=== PATIENT | male | born 1955 | race Caucasian/White ===

== ENCOUNTER 2016-10-21 09:15 | Emergency (ER) | payer OTHER ==
[~2016-10-21] VITALS: Ht 182.9 cm; Wt 104.3 kg
--- NOTE | 2016-10-21 09:40 | PHYS DOC ---
Past Medical History Past Medical History: Diabetes-Type II, Hypertension Past Surgical History: Other Additional Past Surgical Histo: nasal polyps removed Alcohol Use: None Drug Use: None Adult General Chief Complaint Chief Complaint: SORE THROAT HPI HPI Patient is a 61 year old male presents emergency Department with a complaint of atraumatic throat swelling and pressure that began 3 days ago. Patient reports that he had a "tickle sensation" in the back of his throat initially and that he's had progressive swelling to the back of his throat since that period of time. He states that he is still able to swallow but it is increasing in difficulty. States he also noticed some changes in his voice as well. Patient denies any history of chronic ear nose and throat problems with the exception of dental caries. He states that there is a tooth in the left mandible region that has a gold crown on it has been hurting for approximately a week. He denies antibiotic use within the past 90 days. Review of Systems Review of Systems Constitutional: Denies fever or chills [] Eyes: Denies change in visual acuity, redness, or eye pain [] HENT: Denies nasal congestion or sore throat [] Respiratory: Denies cough or shortness of breath [] Cardiovascular: No additional information not addressed in HPI [] GI: Denies abdominal pain, nausea, vomiting, bloody stools or diarrhea [] : Denies dysuria or hematuria [] Musculoskeletal: Denies back pain or joint pain [] Integument: Denies rash or skin lesions [] Neurologic: Denies headache, focal weakness or sensory changes [] Endocrine: Denies polyuria or polydipsia [] Current Medications Current Medications Current Medications Medications (Trade) Dose Ordered Sig/Vic Start Time Stop Time Status Last Admin Dose Admin Clindamycin Phosphate (Cleocin 600 Mg Premix) 50 ml @ 100 mls/hr 1X ONCE 10/21/16 09:45 10/21/16 10:14 DC 10/21/16 09:57 100 MLS/HR Dexamethasone Sodium Phosphate (Decadron) 20 mg 1X ONCE 10/21/16 09:45 10/21/16 09:48 DC 10/21/16 09:57 20 MG Info (Do NOT chart on this entry -- for MONITORING) 1 each PRN DAILY PRN 10/21/16 10:00 10/23/16 09:59 Iohexol (Omnipaque 300 Mg/ml) 75 ml 1X ONCE 10/21/16 10:00 10/21/16 10:01 DC 10/21/16 10:33 75 ML Sodium Chloride 500 ml @ 500 mls/hr 1X ONCE 10/21/16 09:45 10/21/16 10:44 DC 10/21/16 09:56 500 MLS/HR Allergies Allergies Allergies Coded Allergies Type Severity Reaction Last Updated Verified No Known Drug Allergies 07/07/15 No Physical Exam Physical Exam Constitutional: Well developed, well nourished, no acute distress, non-toxic appearance. [] HENT: Normocephalic, atraumatic, bilateral external ears normal, oropharynx moist, no oral exudates, nose normal. There is no trismus. There is hot potato/ muffled speech. Patient has a significant amount of left posterior oropharyngeal swelling that encroaches on the uvula. He is still able to clear his secretions and has adequate room for airway. There is no evidence of subglottic swelling. Eyes: PERRLA, EOMI, conjunctiva normal, no discharge. [] Neck: Normal range of motion, no tenderness, supple, no stridor. There is no anterior soft tissue fullness. There is left anterior cervical lymphadenopathy. Cardiovascular:Heart rate regular rhythm, no murmur [] Lungs & Thorax: Bilateral breath sounds clear to auscultation [] Abdomen: Bowel sounds normal, soft, no tenderness, no masses, no pulsatile masses. [] Skin: Warm, dry, no erythema, no rash. [] Back: No tenderness, no CVA tenderness. [] Extremities: No tenderness, no cyanosis, no clubbing, ROM intact, no edema. [] Neurologic: Alert and oriented X 3, normal motor function, normal sensory function, no focal deficits noted. [] Psychologic: Affect normal, judgement normal, mood normal. [] Current Patient Data Vital Signs Vital Signs Date Time Temp Pulse Resp B/P Pulse Ox O2 Delivery O2 Flow Rate FiO2 10/21/16 09:32 97.9 93 20 152/96 98 Room Air 97.9 Lab Values Laboratory Tests Test 10/21/16 09:41 White Blood Count 14.0x10^3/uL (4.0-11.0) H Red Blood Count 5.30x10^6/uL (4.30-5.70) Hemoglobin 15.1g/dL (13.0-17.5) Hematocrit 44.8% (39.0-53.0) Mean Corpuscular Volume 85fL (79-100) Mean Corpuscular Hemoglobin 29pg (25-35) Mean Corpuscular Hemoglobin Concent 34g/dL (31-37) Red Cell Distribution Width 14.2% (11.5-14.5) Platelet Count 198x10^3/uL (140-400) Neutrophils (%) (Auto) 78% (31-73) H Lymphocytes (%) (Auto) 12% (24-48) L Monocytes (%) (Auto) 8% (0-9) Eosinophils (%) (Auto) 2% (0-3) Basophils (%) (Auto) 0% (0-3) Neutrophils # (Auto) 10.9x10^3uL (1.8-7.7) H Lymphocytes # (Auto) 1.6x10^3/uL (1.0-4.8) Monocytes # (Auto) 1.2x10^3/uL (0.0-1.1) H Eosinophils # (Auto) 0.2x10^3/uL (0.0-0.7) Basophils # (Auto) 0.1x10^3/uL (0.0-0.2) Sodium Level 141mmol/L (136-145) Potassium Level 4.2mmol/L (3.5-5.1) Chloride Level 103mmol/L (98-107) Carbon Dioxide Level 25mmol/L (21-32) Anion Gap 13 (6-14) Blood Urea Nitrogen 15mg/dL (8-26) Creatinine 0.7mg/dL (0.7-1.3) Estimated GFR (Cockcroft-Gault) 113.9 BUN/Creatinine Ratio 21 (6-20) H Glucose Level 130mg/dL (70-99) H Calcium Level 9.1mg/dL (8.5-10.1) Total Bilirubin 0.5mg/dL (0.2-1.0) Aspartate Amino Transferase (AST) 17U/L (15-37) Alanine Aminotransferase (ALT) 21U/L (16-63) Alkaline Phosphatase 81U/L (46-116) Total Protein 8.4g/dL (6.4-8.2) H Albumin 4.0g/dL (3.4-5.0) Albumin/Globulin Ratio 0.9 (1.0-1.7) L Laboratory Tests 10/21/16 09:41 Laboratory Tests 10/21/16 09:41 EKG EKG [] Radiology/Procedures Radiology/Procedures [[facility] [address] [place] [address] IMAGING REPORT Signed PATIENT: KATYA ANAYA ACCOUNT: [id number] : 1955 LOCATION: ER AGE: 61 SEX: M EXAM STATUS: REG ER ORD. PHYSICIAN: JEFFERSON PEREZ REASON: LEFT peritonsillar swelling PROCEDURE: CT SOFT TISSUE NECK W/CONTRAST EXAM: CT neck with contrast. HISTORY: 61-year-old male with left peritonsillar swelling for 3 days. Patient with history of nasal polyps removed. Patient has type 2 diabetes. TECHNIQUE: Computed tomographic images of the neck are obtained following the intravenous demonstration of 70 cc of Omni 300. The patient's IV infiltrated during administration. Multiplanar reformatting was performed. An overlying BB marker is placed at the level of swelling. One or more of the following individualized dose reduction techniques were utilized for this examination: 1. Automated exposure control 2. Adjustment of the mA and/or kV according to patient size 3. Use of iterative reconstruction technique COMPARISON: None. FINDINGS: There is asymmetry and enlargement of the left tonsils as compared to the right. Minimal internal low-attenuation is present within the enlarged tonsil measuring up to 9 mm in greatest dimension. Asymmetry of the left-sided mucosal/pharyngeal soft tissues extends inferiorly to the level of the epiglottis. Scattered prominent cervical lymph nodes are present bilaterally, the largest measuring 1.8 cm within the left level I region. A BB marker placed over the skin at the level of concern overlies the inferior portion of the left parotid gland. The bilateral parotid and submandibular glands appear symmetric and without a focal abnormality. Bilateral carotid arteries are patent. Thyroid gland is symmetric. Fat planes of the neck are maintained. There is mucosal thickening present throughout the paranasal sinuses, without an air-fluid level present. Mastoid air cells are clear. Overlying soft tissues demonstrate no acute process. Visualized intracranial structures demonstrate no acute process or abnormal enhancing finding. Visualized upper lungs are clear. Visualized osseous structures demonstrate no acute finding, with degenerative changes present within the cervical spine. IMPRESSION: Left tonsillar enlargement and asymmetry, with minimal internal fluid density present. No significant fluid collection to suggest abscess. Findings may represent an infectious etiology although given patient's age, a malignant etiology is also considered. Likely reactive cervical adenopathy present bilaterally. DICTATED and SIGNED BY: MITRA AVITIA MD DATE: 10/21/16 9659 CC: JEFFERSON PEREZ; NON,STAFF; MYESHA SCHULZ MD ~ ] Course & Med Decision Making Course & Med Decision Making Case was staffed with [facility] ENT specialist. This time, patient's abdomen was peritonsillar abscess. Recommendation for Medrol Dosepak, clindamycin soft diet and outpatient follow-up with primary care doctor or ENT this coming week. I discussed this with patient feels comfortable with this plan. Dragon Disclaimer Dragon Disclaimer This electronic medical record was generated, in whole or in part, using a voice recognition dictation system. Departure Departure Impression: Primary Impression: Neck swelling Disposition: HOME, SELF-CARE Condition: GOOD Referrals: MYESHA SCHULZ MD (PCP) Patient Instructions: Tonsillitis, [id number] Additional Instructions: 1. As discussed, the CT scan today shows no evidence of an abscess that needs to be drained. 2. Take the medications as prescribed. Eat soft foods to prevent aggravation to your throat. 3. It is very important for you to follow up with your primary care doctor on Sunday or Sunday. It is also important to establish a follow-up appointment with an ear nose and throat doctor. You can call either [facility] at or call [phone]. If you call the second number, be sure to tell the office staff that you live here in [facility] so they can make arrangements for follow-up appointment. 4. Return to the emergency room if: Your condition worsens and you have difficulty swallowing, speaking or breathing. You begin running a fever of 100.5 or higher. Scripts Methylprednisolone (Medrol)4 Mg Tab.ds.pk1 Pkg PO UD #1 PKG Prov:JEFFERSON PEREZ 10/21/16 Clindamycin Hcl 300 Mg Capsule1 Cap PO TID #30 CAP Prov:JEFFERSON PEREZ 10/21/16 JEFFERSON PEREZ Oct 21, 2016 09:40
[2016-10-21] MEDS ORDERED: CLINDAMYCIN 600MG PREMIX 50 ML IV ONE (09:45)
[2016-10-21] MEDS ORDERED: IV NORMAL SALINE 500ML BAG 500 ML IV ONE (09:45)
[2016-10-21] MEDS ORDERED: DEXAMETHASONE SOD PHOS 20 MG/5 ML VIAL. IV ONE (09:45)
[2016-10-21 09:54] LABS: BASO # 0.1 x10^3/uL (0.0-0.2); BASO % 0 % (0-3); EOS % 2 % (0-3); HEMATOCRIT 44.8 % (39.0-53.0); HEMOGLOBIN 15.1 g/dL (13.0-17.5); LYMPH # 1.6 x10^3/uL (1.0-4.8); LYMPH % 12 % (24-48); MEAN CORPUSCULAR HEMOGLOBIN 29 pg (25-35); MEAN CORPUSCULAR HGB CONC 34 g/dL (31-37); MEAN CORPUSCULAR VOLUME 85 fL (79-100); MONO % 8 % (0-9); NEUT % 78 % (31-73); PLATELET COUNT 198 x10^3/uL (140-400); RED CELL DISTRIBUTION WIDTH 14.2 % (11.5-14.5)
[2016-10-21] MEDS ORDERED: CONTRAST GIVEN MC PRN (10:00)
[2016-10-21] MEDS ORDERED: IOHEXOL 300 MG/ML 75 ML VIAL IV ONE (10:00)
[2016-10-21 10:08] LABS: CALCIUM 9.1 mg/dL (8.5-10.1); CREATININE 0.7 mg/dL (0.7-1.3); GFR 113.9; POTASSIUM 4.2 mmol/L (3.5-5.1)
[2016-10-21 10:13] LABS: ALBUMIN/GLOBULIN RATIO 0.9 (1.0-1.7); TOTAL BILIRUBIN 0.5 mg/dL (0.2-1.0); TOTAL PROTEIN 8.4 g/dL (6.4-8.2)
--- NOTE | 2016-10-21 11:11 | RAD ---
EXAM: CT neck with contrast. HISTORY: 61-year-old male with left peritonsillar swelling for 3 days. Patient with history of nasal polyps removed. Patient has type 2 diabetes. TECHNIQUE: Computed tomographic images of the neck are obtained following the intravenous demonstration of 70 cc of Omni 300. The patient's IV infiltrated during administration. Multiplanar reformatting was performed. An overlying BB marker is placed at the level of swelling. One or more of the following individualized dose reduction techniques were utilized for this examination: 1. Automated exposure control 2. Adjustment of the mA and/or kV according to patient size 3. Use of iterative reconstruction technique COMPARISON: None. FINDINGS: There is asymmetry and enlargement of the left tonsils as compared to the right. Minimal internal low-attenuation is present within the enlarged tonsil measuring up to 9 mm in greatest dimension. Asymmetry of the left-sided mucosal/pharyngeal soft tissues extends inferiorly to the level of the epiglottis. Scattered prominent cervical lymph nodes are present bilaterally, the largest measuring 1.8 cm within the left level I region. A BB marker placed over the skin at the level of concern overlies the inferior portion of the left parotid gland. The bilateral parotid and submandibular glands appear symmetric and without a focal abnormality. Bilateral carotid arteries are patent. Thyroid gland is symmetric. Fat planes of the neck are maintained. There is mucosal thickening present throughout the paranasal sinuses, without an air-fluid level present. Mastoid air cells are clear. Overlying soft tissues demonstrate no acute process. Visualized intracranial structures demonstrate no acute process or abnormal enhancing finding. Visualized upper lungs are clear. Visualized osseous structures demonstrate no acute finding, with degenerative changes present within the cervical spine. IMPRESSION: Left tonsillar enlargement and asymmetry, with minimal internal fluid density present. No significant fluid collection to suggest abscess. Findings may represent an infectious etiology although given patient's age, a malignant etiology is also considered. Likely reactive cervical adenopathy present bilaterally.
[2016-10-21] MEDS ORDERED: METH4TAB2 PO (11:37)
[2016-10-21] MEDS ORDERED: CLIN300C86 PO (11:37)
[2016-10-21 11:44] VITALS: BP 139/78
== END 2016-10-21 11:48 | disposition home or self-care (01) ==
LOC: ER 09:15
DX: R22.1 Localized swelling, mass and lump, neck (principal); E11.9 Type 2 diabetes mellitus without complications; I10 Essential (primary) hypertension
CPT/HCPCS: 36415; 70491; 80053; 85027; 96365; 96375; 99285; J1100; J3490; J7040; Q9967